=== PATIENT | male | born 1965 | race Caucasian/White ===

== ENCOUNTER 2022-11-19 09:35 | Emergency (ER) | payer BC ==
[~2022-11-19] VITALS: Ht 182.9 cm; Wt 90.3 kg
== END 2022-11-19 12:42 | disposition home or self-care (01) ==
LOC: ER 09:35
DX: S09.90XA Unspecified injury of head, initial encounter (principal); V00.831A Fall from motorized mobility scooter, initial encounter; Y93.I9 Activity, other involving external motion; Y92.413 State road as the place of occurrence of the external cause; S49.91XA Unspecified injury of right shoulder and upper arm, initial encounter